=== PATIENT | female | born 1965 | race Hispanic/Latino ===

== ENCOUNTER 2022-12-12 17:20 | Inpatient (IN) | payer OTHER ==
[~2022-12-12] VITALS: Ht 154.9 cm; Wt 56.7 kg
[2022-12-12 20:25] LABS: BASOPHILS # (AUTO) 0.06 K/uL (0.00-0.20); BASOPHILS % (AUTO) 0.9 % (0.0-5.0); EOSINOPHILS # (AUTO) 0.17 K/uL (0.00-0.70); EOSINOPHILS % (AUTO) 2.6 % (0.0-8.0); HEMATOCRIT 42.1 % (36-48); IMMATURE GRANULOCYTE ABSOLUTE 0.05 K/uL (0-1); LYMPHOCYTES # (AUTO) 1.2 K/uL (1.0-4.8); MEAN CORPUSCULAR HEMOGLOBIN 27.1 pg (27.0-33.0); MEAN CORPUSCULAR HGB CONC 32.1 g/dL (32.0-36.0); MEAN CORPUSCULAR VOLUME 84.4 fL (79-99); MONOCYTES # (AUTO) 0.7 K/uL (0.1-1.0); MONOCYTES % (AUTO) 10.3 % (3.0-13.0); NEUTROPHILS # (AUTO) 4.3 K/uL (1.8-7.7); NEUTROPHILS % (AUTO) 66.4 % (40.0-77.0); PLATELET COUNT (AUTO) 338 K/uL (130-400); RED BLOOD CELL COUNT(AUTO) 4.99 MIL/uL (4.00-5.50); RED CELL DISTRIBUTION WIDTH 15.8 % (11.0-15.5); WHITE BLOOD COUNT (AUTO) 6.5 K/uL (4.8-10.8)
[2022-12-12 20:34] LABS: CREATININE 0.6 mg/dL (0.5-1.5); POTASSIUM 4.1 mmol/L (3.5-5.1)
[2022-12-12 20:38] LABS: ALBUMIN 2.8 g/dL (3.5-5.0); BILIRUBIN,TOTAL 0.3 mg/dL (0.2-1.0); TOTAL PROTEIN, SERUM 11.5 g/dL (6.0-8.3)
[2022-12-12] MEDS ORDERED: MORPHINE 2 MG SYG IVP ONE (21:30)
[2022-12-12] MEDS ORDERED: ONDANSETRON 4MG INJ IVP ONE (21:30)
[2022-12-12] MEDS ORDERED: 0.9%NACL 1000ML 1,000 ML IV ONE (21:30)
[2022-12-12] MEDS ORDERED: PANTOPRAZOLE 40 MG/VIAL IVP ONE (21:30)
[2022-12-12] MEDS ORDERED: IOHEXOL 350 MG/ML 100ML INFUS..BTL IV ONE (22:41)
[2022-12-13] VITALS: BP 88/48; PULSE 68; RESP 19
[2022-12-13] MEDS ORDERED: ACETAMINOPHEN 325 MG TAB PO PRN ×2 (00:30)
[2022-12-13] MEDS ORDERED: MORPHINE 2 MG SYG IV PRN (00:30)
[2022-12-13] MEDS ORDERED: ONDANSETRON 4MG INJ IV PRN (00:30)
[2022-12-13] MEDS ORDERED: MORPHINE 4 MG SYG IV PRN (00:30)
[2022-12-13] MEDS: LACTATED RINGERS 1000ML 1,000 ML IV SCH ×2 (00:50→13:57)
[2022-12-13 01:34] LABS: APPEARANCE,URINE CLEAR (CLEAR); BILIRUBIN,URINE NEGATIVE (NEGATIVE); COLOR,URINE COLORLESS (YELLOW); GLUCOSE, URINE (UA) NEGATIVE (NEGATIVE); KETONES,URINE NEGATIVE (NEGATIVE); LEUKOCYTE ESTERASE ,URINE NEGATIVE Leu/uL (NEGATIVE); NITRATE,URINE NEGATIVE (NEGATIVE); OCCULT BLOOD,URINE NEGATIVE (NEGATIVE); PROTEIN,URINE NEGATIVE (NEGATIVE); UROBILINOGEN,URINE 0.2 mg/dL (0.2-1.0)
[2022-12-13 01:37] LABS: ADD UA MICROSCOPIC NO
[2022-12-13 06:27] LABS: BASOPHILS # (AUTO) 0.06 K/uL (0.00-0.20); BASOPHILS % (AUTO) 0.8 % (0.0-5.0); EOSINOPHILS # (AUTO) 0.14 K/uL (0.00-0.70); EOSINOPHILS % (AUTO) 1.9 % (0.0-8.0); HEMATOCRIT 40.3 % (36-48); IMMATURE GRANULOCYTE ABSOLUTE 0.06 K/uL (0-1); LYMPHOCYTES # (AUTO) 1.5 K/uL (1.0-4.8); LYMPHOCYTES % (AUTO) 20.4 % (21.0-51.0); MEAN CORPUSCULAR HEMOGLOBIN 27.1 pg (27.0-33.0); MEAN CORPUSCULAR HGB CONC 31.5 g/dL (32.0-36.0); MEAN CORPUSCULAR VOLUME 85.9 fL (79-99); MONOCYTES # (AUTO) 0.5 K/uL (0.1-1.0); MONOCYTES % (AUTO) 6.9 % (3.0-13.0); NEUTROPHILS # (AUTO) 5.1 K/uL (1.8-7.7); NEUTROPHILS % (AUTO) 69.2 % (40.0-77.0); PLATELET COUNT (AUTO) 253 K/uL (130-400); RED BLOOD CELL COUNT(AUTO) 4.69 MIL/uL (4.00-5.50); RED CELL DISTRIBUTION WIDTH 15.9 % (11.0-15.5); WHITE BLOOD COUNT (AUTO) 7.4 K/uL (4.8-10.8)
[2022-12-13] MEDS ORDERED: TERB250T89 PO (06:52)
[2022-12-13 07:01] LABS: CREATININE 0.6 mg/dL (0.5-1.5); INR 1.02 (0.85-1.15); MAGNESIUM 1.9 mg/dL (1.80-2.40); PHOSPHORUS 4.4 mg/dL (2.5-4.9); PROTHROMBIN TIME 11.8 SEC (9.6-11.6)
[2022-12-13 07:02] LABS: PARTIAL THROMBOPLASTIN TIME 30.3 SEC (26.3-35.5)
[2022-12-13] MEDS: FAMOTIDINE 20MG VIAL IV SCH ×2 (09:01→20:58)
[2022-12-13] MEDS ORDERED: LEVO50CA4 PO (09:55)
[2022-12-13] MEDS ORDERED: APIX5TAB PO (09:55)
[2022-12-13] MEDS ORDERED: DIGO125T17 PO (09:55)
[2022-12-13] MEDS ORDERED: LEVO88TA7 PO (09:58)
[2022-12-13] MEDS ORDERED: FURO20TA4 PO (09:59)
[2022-12-13] MEDS ORDERED: SPIR50TA5 PO (09:59)
[2022-12-13] MEDS ORDERED: LORAZEPAM 2 MG/ML 1 ML VIAL IVP PRN (17:30)
[2022-12-13 20:00] VITALS: BP 95/50; PULSE 76; RESP 16
[2022-12-13 21:39] VITALS: O2SAT 98
[2022-12-14] VITALS (7 sets, daily range): BP systolic 82–106; BP diastolic 48–67; PULSE 67–81; RESP 16–19
[2022-12-14] MEDS: LACTATED RINGERS 1000ML 1,000 ML IV SCH (05:45)
[2022-12-14 05:55] LABS: BASOPHILS # (AUTO) 0.05 K/uL (0.00-0.20); BASOPHILS % (AUTO) 0.9 % (0.0-5.0); EOSINOPHILS # (AUTO) 0.13 K/uL (0.00-0.70); EOSINOPHILS % (AUTO) 2.3 % (0.0-8.0); HEMATOCRIT 36.5 % (36-48); IMMATURE GRANULOCYTE ABSOLUTE 0.04 K/uL (0-1); LYMPHOCYTES # (AUTO) 0.9 K/uL (1.0-4.8); LYMPHOCYTES % (AUTO) 16.4 % (21.0-51.0); MEAN CORPUSCULAR HEMOGLOBIN 27.3 pg (27.0-33.0); MEAN CORPUSCULAR HGB CONC 32.1 g/dL (32.0-36.0); MEAN CORPUSCULAR VOLUME 85.1 fL (79-99); MONOCYTES # (AUTO) 0.5 K/uL (0.1-1.0); MONOCYTES % (AUTO) 8.6 % (3.0-13.0); NEUTROPHILS % (AUTO) 71.1 % (40.0-77.0); PLATELET COUNT (AUTO) 274 K/uL (130-400); RED BLOOD CELL COUNT(AUTO) 4.29 MIL/uL (4.00-5.50); RED CELL DISTRIBUTION WIDTH 15.9 % (11.0-15.5); WHITE BLOOD COUNT (AUTO) 5.6 K/uL (4.8-10.8)
[2022-12-14 06:33] LABS: CREATININE 0.5 mg/dL (0.5-1.5); POTASSIUM 3.7 mmol/L (3.5-5.1)
[2022-12-14] MEDS ORDERED: DEXTROSE 50%-WATER 50 ML DISP.SYRIN IV PRN (08:30)
[2022-12-14] MEDS ORDERED: GLUCAGON 1MG KIT 1 MG ML IM PRN (08:30)
[2022-12-14] MEDS: FAMOTIDINE 20MG VIAL IV SCH ×2 (09:15→20:16)
[2022-12-15 04:00] VITALS: BP 105/59; PULSE 76; RESP 16
[2022-12-15 05:40] LABS: BASOPHILS # (AUTO) 0.05 K/uL (0.00-0.20); BASOPHILS % (AUTO) 0.9 % (0.0-5.0); EOSINOPHILS # (AUTO) 0.19 K/uL (0.00-0.70); EOSINOPHILS % (AUTO) 3.5 % (0.0-8.0); HEMATOCRIT 34.8 % (36-48); IMMATURE GRANULOCYTE ABSOLUTE 0.04 K/uL (0-1); LYMPHOCYTES # (AUTO) 0.9 K/uL (1.0-4.8); LYMPHOCYTES % (AUTO) 16.6 % (21.0-51.0); MEAN CORPUSCULAR HEMOGLOBIN 27.3 pg (27.0-33.0); MEAN CORPUSCULAR HGB CONC 31.6 g/dL (32.0-36.0); MEAN CORPUSCULAR VOLUME 86.4 fL (79-99); MONOCYTES # (AUTO) 0.5 K/uL (0.1-1.0); MONOCYTES % (AUTO) 9.4 % (3.0-13.0); NEUTROPHILS # (AUTO) 3.7 K/uL (1.8-7.7); NEUTROPHILS % (AUTO) 68.9 % (40.0-77.0); PLATELET COUNT (AUTO) 260 K/uL (130-400); RED BLOOD CELL COUNT(AUTO) 4.03 MIL/uL (4.00-5.50); RED CELL DISTRIBUTION WIDTH 15.8 % (11.0-15.5); WHITE BLOOD COUNT (AUTO) 5.4 K/uL (4.8-10.8)
[2022-12-15 05:58] LABS: ALBUMIN 2.1 g/dL (3.5-5.0); BILIRUBIN,TOTAL 0.2 mg/dL (0.2-1.0); CREATININE 0.7 mg/dL (0.5-1.5); MAGNESIUM 1.7 mg/dL (1.80-2.40); POTASSIUM 3.6 mmol/L (3.5-5.1); TOTAL PROTEIN, SERUM 8.9 g/dL (6.0-8.3)
[2022-12-15 07:26] VITALS: BP 92/55; PULSE 69; RESP 17
[2022-12-15] MEDS: FAMOTIDINE 20MG VIAL IV SCH ×2 (10:00→21:10)
[2022-12-15 11:11] VITALS: BP 92/67; PULSE 77; RESP 18
[2022-12-15 15:40] VITALS: BP 121/67; PULSE 88; RESP 17
[2022-12-15 20:40] VITALS: BP 122/84; PULSE 85; RESP 20
[2022-12-15 23:41] VITALS: BP 101/62; PULSE 78; RESP 20
[2022-12-16] VITALS (10 sets, daily range): BP systolic 88–114; BP diastolic 49–67; PULSE 67–81; RESP 18–20; O2SAT 94
[2022-12-16 04:35] LABS: BASOPHILS # (AUTO) 0.05 K/uL (0.00-0.20); BASOPHILS % (AUTO) 0.9 % (0.0-5.0); EOSINOPHILS # (AUTO) 0.14 K/uL (0.00-0.70); EOSINOPHILS % (AUTO) 2.5 % (0.0-8.0); HEMATOCRIT 35.8 % (36-48); IMMATURE GRANULOCYTE ABSOLUTE 0.04 K/uL (0-1); LYMPHOCYTES # (AUTO) 0.9 K/uL (1.0-4.8); LYMPHOCYTES % (AUTO) 16.1 % (21.0-51.0); MEAN CORPUSCULAR HEMOGLOBIN 27.5 pg (27.0-33.0); MEAN CORPUSCULAR HGB CONC 32.1 g/dL (32.0-36.0); MEAN CORPUSCULAR VOLUME 85.6 fL (79-99); MONOCYTES # (AUTO) 0.5 K/uL (0.1-1.0); MONOCYTES % (AUTO) 8.9 % (3.0-13.0); NEUTROPHILS % (AUTO) 70.9 % (40.0-77.0); NUCLEATED RED BLOOD CELLS 0.4 % (0.0-0.19); PLATELET COUNT (AUTO) 257 K/uL (130-400); RED BLOOD CELL COUNT(AUTO) 4.18 MIL/uL (4.00-5.50); RED CELL DISTRIBUTION WIDTH 15.8 % (11.0-15.5); WHITE BLOOD COUNT (AUTO) 5.7 K/uL (4.8-10.8)
[2022-12-16 04:51] LABS: INR 1.06 (0.85-1.15); PROTHROMBIN TIME 12.2 SEC (9.6-11.6)
[2022-12-16 04:54] LABS: ALBUMIN 2.1 g/dL (3.5-5.0); BILIRUBIN,TOTAL 0.2 mg/dL (0.2-1.0); CREATININE 0.6 mg/dL (0.5-1.5); MAGNESIUM 1.6 mg/dL (1.80-2.40); POTASSIUM 3.8 mmol/L (3.5-5.1); TOTAL PROTEIN, SERUM 9.1 g/dL (6.0-8.3)
[2022-12-16] MEDS: FAMOTIDINE 20MG VIAL IV SCH (09:00)
[2022-12-16] MEDS ORDERED: ALBUMIN (HUMAN) 25% 200 ML IV SCH (09:30)
[2022-12-16 12:35] LABS: BODY FLUID RBC 64578 /cu. mm.; BODY FLUID WBC 9119 /cu. mm.
[2022-12-16 13:20] LABS: BF EOSINOPHIL 1 %; BF LYMPHOCYTE 96 %; BF MESOTHELIAL 1 %; BF MONOCYTE 2 %; BF TOTAL CELLS COUNTED 100
[2022-12-16 13:21] LABS: APPEARANCE BODY FLUID CLOUDY (CLEAR); COLOR,BODY FLUID RED (LT YELLOW); TOTAL VOLUME,BODY FLUID 4.5 mL
[2022-12-16 13:22] LABS: SPECIMENTYPE,BODY FLUID ASCITES
== END 2022-12-16 13:30 | disposition home or self-care (01) | DRG 432 ==
LOC: EDH 17:20 → EDHIP 17:21 → 3BH 12-13 14:30 → WSH 12-15 20:40 → UNDODISIN 12-16 13:30
PROVIDERS: ADMIT Internal Medicine; ATTEND Internal Medicine
PROC: 0W9G3ZZ Drainage of Peritoneal Cavity, Percutaneous Approach (ICD-10-PCS; principal; 2022-12-16)
DX: K74.60 Unspecified cirrhosis of liver (principal); E43 Unspecified severe protein-calorie malnutrition; J90 Pleural effusion, not elsewhere classified; R18.8 Other ascites; E03.9 Hypothyroidism, unspecified; K59.09 Other constipation; E11.9 Type 2 diabetes mellitus without complications; E78.00 Pure hypercholesterolemia, unspecified; F17.210 Nicotine dependence, cigarettes, uncomplicated; F41.9 Anxiety disorder, unspecified; I10 Essential (primary) hypertension; Z85.41 Personal history of malignant neoplasm of cervix uteri; Z68.23 Body mass index [BMI] 23.0-23.9, adult
CPT/HCPCS: 36415; 49083; 71045; 74177; 76700; 76856; 80048; 80053; 81003; 82105; 82140; 82378; 82948; 83690; 83735; 84100; 84484; 84703; 85025; 85610; 85730; 86304; 86850; 86900; 86901; 87040; 87071; 87205; 89051; 93005; C1729; C9113; G0378; J2060; J2270; J2405; J3490; J7030; J7070; J7120; P9046; Q9967

== ENCOUNTER 2023-02-18 21:59 | Emergency (ER) | payer OTHER ==
[~2023-02-18] VITALS: Ht 154.9 cm; Wt 54.9 kg
[~2023-02-18 21:59] MED LIST: APIX5TAB PO; DIGO125T17 PO; FURO20TA4 PO; LEVO88TA7 PO; SPIR50TA5 PO
[2023-02-18 23:12] LABS: BASOPHILS # (AUTO) 0.09 K/uL (0.00-0.20); BASOPHILS % (AUTO) 1.3 % (0.0-5.0); EOSINOPHILS # (AUTO) 0.21 K/uL (0.00-0.70); EOSINOPHILS % (AUTO) 3.1 % (0.0-8.0); HEMATOCRIT 30.6 % (36-48); IMMATURE GRANULOCYTE ABSOLUTE 0.05 K/uL (0-1); LYMPHOCYTES # (AUTO) 0.8 K/uL (1.0-4.8); LYMPHOCYTES % (AUTO) 12.3 % (21.0-51.0); MEAN CORPUSCULAR HEMOGLOBIN 28.8 pg (27.0-33.0); MONOCYTES # (AUTO) 0.5 K/uL (0.1-1.0); MONOCYTES % (AUTO) 7.8 % (3.0-13.0); NEUTROPHILS % (AUTO) 74.8 % (40.0-77.0); PLATELET COUNT (AUTO) 334 K/uL (130-400); RED CELL DISTRIBUTION WIDTH 16.9 % (11.0-15.5); WHITE BLOOD COUNT (AUTO) 6.7 K/uL (4.8-10.8)
[2023-02-18 23:17] LABS: CREATININE 0.7 mg/dL (0.5-1.5); POTASSIUM 4.1 mmol/L (3.5-5.1)
[2023-02-18 23:22] LABS: ALBUMIN 2.2 g/dL (3.5-5.0); BILIRUBIN,TOTAL 0.2 mg/dL (0.2-1.0); TOTAL PROTEIN, SERUM 9.1 g/dL (6.0-8.3)
[2023-02-18 23:47] LABS: APPEARANCE,URINE CLOUDY (CLEAR); BILIRUBIN,URINE NEGATIVE (NEGATIVE); COLOR,URINE LIGHT-YELLOW (YELLOW); GLUCOSE, URINE (UA) NEGATIVE (NEGATIVE); KETONES,URINE NEGATIVE (NEGATIVE); LEUKOCYTE ESTERASE ,URINE NEGATIVE Leu/uL (NEGATIVE); MUCUS,URINE RARE LPF (None Seen); NITRATE,URINE NEGATIVE (NEGATIVE); OCCULT BLOOD,URINE NEGATIVE (NEGATIVE); PROTEIN,URINE NEGATIVE (NEGATIVE); SQUAMOUS EPITHELIAL CELL,UR RARE /HPF (0-2); UROBILINOGEN,URINE 0.2 mg/dL (0.2-1.0)
[2023-02-19] MEDS ORDERED: ESCI-8 PO (00:25)
[2023-02-19] MEDS ORDERED: GLIM2TAB30 PO (00:25)
[2023-02-19] MEDS ORDERED: METF-445 PO (00:25)
[2023-02-19] MEDS ORDERED: SITA1TBM4 PO (00:27)
[2023-02-19 00:39] VITALS: BP 108/52; PULSE 84; RESP 18; O2SAT 98
[2023-02-19] MEDS ORDERED: ONDANSETRON 4MG INJ IVP ONE (01:00)
== END 2023-02-19 01:17 | disposition home or self-care (01) ==
LOC: EDH 21:59
DX: C80.1 Malignant (primary) neoplasm, unspecified (principal); C78.6 Secondary malignant neoplasm of retroperitoneum and peritoneum
CPT/HCPCS: 99284; 71045; 80053; 82140; 85025; 81001; 36415; 96374; J2405

== ENCOUNTER 2023-02-24 04:31 | Inpatient (IN) | payer OTHER ==
[~2023-02-24] VITALS: Ht 152.4 cm; Wt 53.5 kg
[~2023-02-24 04:31] MED LIST changes: +ESCI-8 PO; +GLIM2TAB30 PO; +METF-445 PO; +SITA1TBM4 PO
[2023-02-24] MEDS ORDERED: ONDANSETRON 4MG INJ IVP ONE (05:00)
[2023-02-24] MEDS ORDERED: FAMOTIDINE 20MG VIAL IV ONE (05:00)
[2023-02-24] MEDS ORDERED: KETOROLAC 30MG VIAL (30MG/ML) IVP ONE (05:00)
[2023-02-24] MEDS ORDERED: METOCLOPRAMIDE 10 MG/2 ML VIAL IVP ONE (05:00)
[2023-02-24 05:29] LABS: BASOPHILS # (AUTO) 0.03 K/uL (0.00-0.20); BASOPHILS % (AUTO) 0.3 % (0.0-5.0); EOSINOPHILS # (AUTO) 0.01 K/uL (0.00-0.70); EOSINOPHILS % (AUTO) 0.1 % (0.0-8.0); HEMATOCRIT 35.8 % (36-48); IMMATURE GRANULOCYTE ABSOLUTE 0.18 K/uL (0-1); LYMPHOCYTES % (AUTO) 10.2 % (21.0-51.0); MEAN CORPUSCULAR HEMOGLOBIN 28.9 pg (27.0-33.0); MEAN CORPUSCULAR HGB CONC 32.7 g/dL (32.0-36.0); MEAN CORPUSCULAR VOLUME 88.4 fL (79-99); MONOCYTES # (AUTO) 0.4 K/uL (0.1-1.0); MONOCYTES % (AUTO) 4.1 % (3.0-13.0); NEUTROPHILS # (AUTO) 8.4 K/uL (1.8-7.7); NEUTROPHILS % (AUTO) 83.5 % (40.0-77.0); PLATELET COUNT (AUTO) 413 K/uL (130-400); RED BLOOD CELL COUNT(AUTO) 4.05 MIL/uL (4.00-5.50); RED CELL DISTRIBUTION WIDTH 15.9 % (11.0-15.5); WHITE BLOOD COUNT (AUTO) 10.1 K/uL (4.8-10.8)
[2023-02-24] MEDS ORDERED: LACTATED RINGERS 1000ML 1,000 ML IV ONE (05:30)
[2023-02-24] MEDS ORDERED: ZOSYN 3.375GM +NS 50ML IV ONE (05:30)
[2023-02-24 05:48] LABS: INR 1.13 (0.85-1.15)
[2023-02-24 05:50] LABS: PARTIAL THROMBOPLASTIN TIME 36.5 SEC (26.3-35.5)
[2023-02-24 06:03] LABS: ALBUMIN 1.9 g/dL (3.5-5.0); BILIRUBIN,TOTAL 0.5 mg/dL (0.2-1.0); CREATININE 0.9 mg/dL (0.5-1.5); POTASSIUM 4.7 mmol/L (3.5-5.1); TOTAL PROTEIN, SERUM 9.8 g/dL (6.0-8.3)
[2023-02-24] MEDS ORDERED: MIDODRINE HCL 5 MG TABLET PO STA (08:12)
[2023-02-24] MEDS ORDERED: 0.9% NACL 500ML IV.SOLN 500 ML IV ONE (08:30)
[2023-02-24] MEDS ORDERED: MORPHINE 2 MG SYG IV PRN (10:30)
[2023-02-24] MEDS ORDERED: ONDANSETRON 4MG INJ IV PRN (10:30)
[2023-02-24] MEDS ORDERED: ACETAMINOPHEN 325 MG TAB PO PRN ×2 (10:30)
[2023-02-24] MEDS ORDERED: ALBUMIN (HUMAN) 25% 200 ML IV ONE (10:31)
[2023-02-24] MEDS ORDERED: SODIUM BICARB 50MEQ 50ML VIAL 50 ML ONE (10:31)
[2023-02-24 11:55] LABS: INR 1.15 (0.85-1.15); PROTHROMBIN TIME 13.2 SEC (9.6-11.6)
[2023-02-24 11:57] LABS: PARTIAL THROMBOPLASTIN TIME 36.3 SEC (26.3-35.5)
[2023-02-24 13:37] LABS: APPEARANCE BODY FLUID CLOUDY (CLEAR); COLOR,BODY FLUID RED (LT YELLOW); SPECIMENTYPE,BODY FLUID ASCITES; TOTAL VOLUME,BODY FLUID 2000 mL
[2023-02-24 13:45] LABS: BODY FLUID RBC 6676 /cu. mm.; BODY FLUID WBC 6737 /cu. mm.
[2023-02-24 13:56] LABS: BF LYMPHOCYTE 15 %; BF MESOTHELIAL 2 %; BF MONOCYTE 3 %; BF TOTAL CELLS COUNTED 100
[2023-02-24] MEDS ORDERED: FAMOTIDINE 20MG VIAL IV SCH (21:00)
[2023-02-24 21:59] VITALS: BP 102/46; PULSE 98; RESP 14
[2023-02-24 22:22] VITALS: O2SAT 98
== END 2023-02-25 00:01 | disposition home or self-care (01) | DRG 755 ==
LOC: EDH 04:31 → EDHIP 04:32
PROVIDERS: ADMIT Hospitalist; ATTEND Hospitalist
PROC: 0W9G3ZZ Drainage of Peritoneal Cavity, Percutaneous Approach (ICD-10-PCS; principal; 2023-02-24)
DX: C54.1 Malignant neoplasm of endometrium (principal); R18.8 Other ascites; E11.9 Type 2 diabetes mellitus without complications; E78.5 Hyperlipidemia, unspecified; F17.200 Nicotine dependence, unspecified, uncomplicated; E66.9 Obesity, unspecified; F41.9 Anxiety disorder, unspecified; I95.9 Hypotension, unspecified; Z80.3 Family history of malignant neoplasm of breast; Z85.41 Personal history of malignant neoplasm of cervix uteri; Z90.710 Acquired absence of both cervix and uterus; Z95.0 Presence of cardiac pacemaker; Z68.23 Body mass index [BMI] 23.0-23.9, adult
CPT/HCPCS: 36415; 49083; 80053; 82140; 82550; 83605; 83690; 84484; 85025; 85610; 85730; 87040; 87071; 87205; 89051; 93005; C1729; G0378; J1885; J2270; J2405; J2543; J2765; J3490; J7040; P9046